=== PATIENT | female | born 1940 | race Caucasian/White ===

== ENCOUNTER → 2019-07-01 11:49 | Outpatient (CLI) | payer SELFPAY ==
[2019-07-01 12:36] LABS: Erythrocyte Sedimentation Rate 13 mm/hr (0-30)
[2019-07-01 12:44] LABS: Hematocrit 37.8 % (37-47); Mean Corp Hgb Conc 31.7 g/dL (32-36); Mean Corpuscular Hgb 29.6 pg (27.0-32.0); Mean Corpuscular Volume 93.3 fL (81-99); Mean Platelet Vol. 9.9 fl (6.2-12.0); Platelet Count 278 K/mm3 (150-450); RBC Distribution Width CV 13.4 % (11.6-14.6); RBC Distribution Width SD 45.8 fl (35.1-43.9); Red Blood Count 4.05 M/mm3 (4.2-5.4); White Blood Count 7.4 K/mm3 (4.4-11.0)
[2019-07-01 13:01] LABS: Vitamin B12 522 pg/mL (211-911)
[2019-07-01 13:30] LABS: BUN 22 mg/dL (7-18); CRP 3.19 mg/L (0.0-3.0); Creatinine, Serum 0.84 mg/dL (0.55-1.02); EST Glomerular Filtration Rate 70 mL/min (>60); Est Glom Filt Rate - Afr Amer 85 mL/min (>60)
[2019-07-05 16:26] LABS: Arsenic 7245 5 ug/L (2-23); Lead, Blood 2 ug/dL (0-4); Mercury, Blood 85324 1.9 ug/L (0.0-14.9); Vitamin B1, Thiamine 129.2 nmol/L (66.5-200.0)
== END ==
PROVIDERS: Family Provider Family Medicine; PCP Family Medicine; Referring Provider Ophthalmology; Visit Provider Ophthalmology
DX: H53.483 Generalized contraction of visual field, bilateral (principal)
CPT/HCPCS: 36415; 82175; 82565; 82607; 82746; 83655; 83825; 84425; 84520; 85027; 85652; 86140